=== PATIENT | female | born 1970 | race Caucasian/White ===

== ENCOUNTER 2016-11-17 12:15 | Emergency (ER) | payer BC ==
[~2016-11-17 12:15] MED LIST: ABILIFY20 MG PO; ALPRAZOLAM0.5 MG PO; ANTACI2 PO; ATORVASTATIN CA40 MG PO; CLONAZEPAM2 MG PO; DILAUDID4 MG PO; DIPHENHYDRAMINE25 M1 PO; MORPHINE SULFAT30 M2 PO; NORCO1 TAB PO; OXYCODONE HCL15 MG PO; OXYCONTIN CR15 MG PO; PRILOSEC20 MG PO; SERTRALINE HCL100 MG PO; STOOL SOFTENER100 M1 PO; TIZANIDINE HCL4 MG PO; ZOFRAN4 MG PO; ZOLPIDEM TARTRA10 MG PO
--- NOTE | 2016-11-17 17:34 | ED ORDER SUMMARY ---
..... Patient: CHRISTIN GUERRERO OrderSheet [facility] VisitID: [id number] [address] [place] [address] 46y, F Registration Date/Time: 11/17/2016 ORDER SHEET Weight: 102.0 kg (stated) Allergies: Codeine, Latex, Sulfa Antibiotics GENERAL ORDERS: BNP Urgent (15:21 11/17/2016 Justin RICHTER) (Ack 15:34 LNations ER Tech1) (15:54 MWinterer R.N.) D-Dimer Urgent (15:11/17/2016 Justin RICHTER) (Ack 15:34 LNations ER Tech1) (15:54 MWinterer R.N.) Cardiac Panel Stat (15:11/17/2016 Justin RICHTER) (Ack 15:34 LNations ER Tech1) (15:54 MWinterer R.N.) MEDICATION ORDERS: IV FLUIDS: IV Saline Lock (15:21 11/17/2016 Justin RICHTER) (Ack 15:31 MWinterer R.N.) (15:54 MWinterer R.N.) Dilaudid IV 1 mg (HIGH ALERT MEDICATION, NOW) (16:31 11/17/2016 Justin RICHTER) (Ack 16:32 MWinterer R.N.) (16:43 DBeyer R.N.) Toradol IV 30 mg (NOW) (16:31 11/17/2016 Justin RICHTER) (Ack 16:32 MWinterer R.N.) (16:43 DBeyer R.N.) Dilaudid IV 1 mg (HIGH ALERT MEDICATION, NOW) (17:36 11/17/2016 Justin RICHTER) (Ack 17:38 MWinterer R.N.) (17:45 MWinterer R.N.) ORDER SHEET NOTES: [Electronically signed by Fela Casillas R.N. (22:08 11/17/2016)] [Electronically signed by Alicia Hubbard MD (00:12 11/22/2016)] [Electronically locked/signed by Fela Casillas R.N. (22:08 11/17/2016)]
--- NOTE | 2016-11-17 17:34 | ED NURSING NOTES ---
Clinical Report - Nurses [place] [address] [place] [address] 11/17/2016 12:17 Patient: CHRISTIN GUERRERO TRIAGE Acuity: LEVEL 3. Chief Complaint: RIGHT LOWER EXTREMITY PAIN and SWELLING. Location of symptoms- right ankle. LEFT LOWER EXTREMITY PAIN and SWELLING. Location of symptoms- left ankle. Alert. No acute distress. BAMBI COMA SCORE: [place] Coma Scale: 15- eyes open spontaneously (4); best verbal response- oriented x 4 (5); best motor response- obeys commands (6). --12:46 Fela Casillas R.N. 12:38 11/17/16. BP: 144/63. HR: 72. RR: 16. O2 saturation: 100% on room air. Temp: 97.9 F (oral). Pain level now: 04/07. --12:46 Fela Casillas R.N. Weight: 102 kg stated. Height/Length: 66 inches Per Patient. BMI: 36.3. --12:42 Fela Casillas R.N. Medications DULoxetine HCl Oral. --12:42 Fela Casillas R.N. TiZANidine HCl Oral. --12:42 Fela Casillas R.N. Methylphenidate HCl Oral. --12:43 Fela Casillas R.N. Estridial. --12:43 Fela Casillas R.N. Omeprazole Oral. --12:44 Fela Casillas R.N. OxyCODONE HCl Oral. --12:44 Fela Casillas R.N. Morphine Sulfate ER Beads Oral 60 mg. --12:44 Fela Casillas R.N. Hydrocodone-Acetaminophen Oral. --12:44 Fela Casillas R.N. ALPRAZolam Oral. --12:45 Fela Casillas R.N. ClonazePAM Oral. --12:45 Fela Casillas R.N. Atorvastatin Calcium Oral. --12:45 Fela Casillas R.N. Zolpidem Tartrate Oral. --12:45 Fela Casillas R.N. Medication/allergy information source: the patient. --12:46 Fela Casillas R.N. Allergies Codeine. Latex. Sulfa Antibiotics. --12:42 Fela Casillas R.N. History Arrived by private vehicle. Historian: patient. Accompanied by friend. Primary physician (Horacio). This occurred (Nov 06, 2016). ( Pt reports bilateral edema since Nov 06. She states she developed a rash on her left ankle last night.). 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 (christian and Misbah). SOCIAL HX: Never smoker. No alcohol use or drug use. FALL RISK ASSESSMENT: Fall risk assessment completed. No fall risk identified. NUTRITIONAL RISK ASSESSMENT: The nutritional risk assessment revealed no deficiencies. FUNCTIONAL ASSESSMENT: Functional assessment: no impairments noted. LEARNING NEEDS ASSESSMENT: The learning needs assessment revealed no barriers. SKIN INTEGRITY ASSESSMENT: Skin integrity risk assessment completed. No skin integrity risk identified. --12:46 Fela Casillas R.N. Assessment GENERAL / NEURO / PSYCH: Alert. Oriented X 4. Appears in no acute distress. Patient appears calm and cooperative. RESPIRATORY: Respirations not labored. CVS: Capillary refill less than 2 seconds. GI / : Abdomen soft and nontender. SKIN: Mucous membranes are pink. Skin is warm and dry. --12:46 Fela Casillas R.N. Interventions ID band on patient. To treatment room. --12:46 Fela Casillas R.N. NURSING PROGRESS NOTES 12:46 11/17/16. Two patient identifiers checked. Call light placed in reach. Side rails up x 1. Bed placed in lowest position. Brakes of bed on. Patient ready for evaluation- chart flagged and ED physician notified. --12:46 Fela Casillas R.N. 15:49 11/17/2016 Site #1 started via IV in the right antecubital space with an 20g angiocath, with aseptic technique and good blood return; two attempts. Blood drawn: rainbow set. Labeled in the presence of the patient and sent to the lab. Saline lock flushed with 10 mL saline. --15:54 Fela Casillas R.N. 16:38 11/17/2016 Toradol IVP 30 mg given over 2 minute(s) via site #1. Allergies verified and confirmed 5 rights. IV patency established. IV site checked: no pain, redness, or swelling. IV flushed thoroughly pre- and post-medication administration. IVP given by RN. --16:43 Unruly Nielsen R.N. 16:43 11/17/2016 Dilaudid (HYDROmorphone HCl PF) IVP 1 mg given over 2 minute(s) via site #1. Allergies verified, confirmed 5 rights and sedative warning given to the patient. IV patency established. IV site checked: no pain, redness, or swelling. IV flushed thoroughly pre- and post-medication administration. IVP given by RN. --16:43 Unruly Nielsen R.N. 16:44 11/17/16. BP: 144/63. HR: 63. O2 saturation: 95%. --16:45 Unruly Nielsen R.N. 17:45 11/17/2016 Dilaudid (HYDROmorphone HCl PF) IVP 1 mg given over 2 minute(s) via site #1. Allergies verified, confirmed 5 rights and sedative warning given to the patient. IV patency established. IV site checked: no pain, redness, or swelling. IV flushed thoroughly pre- and post-medication administration. IVP given by RN. --17:45 Fela Casillas R.N. 17:50 11/17/2016 Site #1 removed upon discharge. Catheter intact. Manual pressure and bandage applied. --22:02 Fela Casillas R.N. DISPOSITION / DISCHARGE 17:45 11/17/16. BP: 148/73. HR: 61. RR: 12. O2 saturation: 98% on room air. Temp: 98.6 F (oral). Pain level now: 03/08. --17:46 Fela Casillas R.N. Departure time: 17:55 Nov 17 2016. Condition at departure: improved and stable. No learning barriers present. Discharge instructions provided and reviewed with the patient. Patient verbalized understanding. Written instructions provided in Cameroonian. The patient was discharged by the physician. She was discharged home and accompanied by security messenger. She left the Emergency Department ambulatory and via private vehicle. Photo Producer driving. --22:01 Fela Casillas R.N. Locked/Released at 11/17/2016 22:08 by Fela Casillas R.N.
--- NOTE | 2016-11-17 17:34 | ED ORDER SUMMARY ---
..... Patient: CHRISTIN GUERRERO OrderSheet [facility] VisitID: [id number] [address] [place] [address] 46y, F Registration Date/Time: 11/17/2016 ORDER SHEET Weight: 102.0 kg (stated) Allergies: Codeine, Latex, Sulfa Antibiotics GENERAL ORDERS: BNP Urgent (15:21 11/17/2016 Justin RICHTER) (Ack 15:34 LNations ER Tech1) (15:54 MWinterer R.N.) D-Dimer Urgent (15:11/17/2016 Justin RICHTER) (Ack 15:34 LNations ER Tech1) (15:54 MWinterer R.N.) Cardiac Panel Stat (15:11/17/2016 Justin RICHTER) (Ack 15:34 LNations ER Tech1) (15:54 MWinterer R.N.) MEDICATION ORDERS: IV FLUIDS: IV Saline Lock (15:21 11/17/2016 Justin RICHTER) (Ack 15:31 MWinterer R.N.) (15:54 MWinterer R.N.) Dilaudid IV 1 mg (HIGH ALERT MEDICATION, NOW) (16:31 11/17/2016 Justin RICHTER) (Ack 16:32 MWinterer R.N.) (16:43 DBeyer R.N.) Toradol IV 30 mg (NOW) (16:31 11/17/2016 Justin RICHTER) (Ack 16:32 MWinterer R.N.) (16:43 DBeyer R.N.) Dilaudid IV 1 mg (HIGH ALERT MEDICATION, NOW) (17:36 11/17/2016 Justin RICHTER) (Ack 17:38 MWinterer R.N.) (17:45 MWinterer R.N.) ORDER SHEET NOTES: [Electronically signed by Fela Casillas R.N. (22:08 11/17/2016)] [Electronically signed by Alicia Hubbard MD (00:12 11/22/2016)] [Electronically locked/signed by Fela Casillas R.N. (22:08 11/17/2016)]
--- NOTE | 2016-11-17 17:34 | ED NURSING NOTES ---
Clinical Report - Nurses [place] [address] [place] [address] 11/17/2016 12:17 Patient: CHRISTNI GUERRERO TRIAGE Acuity: LEVEL 3. Chief Complaint: RIGHT LOWER EXTREMITY PAIN and SWELLING. Location of symptoms- right ankle. LEFT LOWER EXTREMITY PAIN and SWELLING. Location of symptoms- left ankle. Alert. No acute distress. BAMBI COMA SCORE: [place] Coma Scale: 15- eyes open spontaneously (4); best verbal response- oriented x 4 (5); best motor response- obeys commands (6). --12:46 Fela Casilals R.N. 12:38 11/17/16. BP: 144/63. HR: 72. RR: 16. O2 saturation: 100% on room air. Temp: 97.9 F (oral). Pain level now: 04/07. --12:46 Fela Casillas R.N. Weight: 102 kg stated. Height/Length: 66 inches Per Patient. BMI: 36.3. --12:42 Fela Casillas R.N. Medications DULoxetine HCl Oral. --12:42 Fela Casillas R.N. TiZANidine HCl Oral. --12:42 Fela Casillas R.N. Methylphenidate HCl Oral. --12:43 Fela Casillas R.N. Estridial. --12:43 Fela Casillas R.N. Omeprazole Oral. --12:44 Fela Casillas R.N. OxyCODONE HCl Oral. --12:44 Fela Casillas R.N. Morphine Sulfate ER Beads Oral 60 mg. --12:44 Fela Casillas R.N. Hydrocodone-Acetaminophen Oral. --12:44 Fela Casillas R.N. ALPRAZolam Oral. --12:45 Fela Casillas R.N. ClonazePAM Oral. --12:45 Fela Casillas R.N. Atorvastatin Calcium Oral. --12:45 Fela Casillas R.N. Zolpidem Tartrate Oral. --12:45 Fela Casillas R.N. Medication/allergy information source: the patient. --12:46 Fela Casillas R.N. Allergies Codeine. Latex. Sulfa Antibiotics. --12:42 Fela Casillas R.N. History Arrived by private vehicle. Historian: patient. Accompanied by friend. Primary physician (Hoarcio). This occurred (Nov 06, 2016). ( Pt reports bilateral edema since Nov 06. She states she developed a rash on her left ankle last night.). 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 (christian and Misbah). SOCIAL HX: Never smoker. No alcohol use or drug use. FALL RISK ASSESSMENT: Fall risk assessment completed. No fall risk identified. NUTRITIONAL RISK ASSESSMENT: The nutritional risk assessment revealed no deficiencies. FUNCTIONAL ASSESSMENT: Functional assessment: no impairments noted. LEARNING NEEDS ASSESSMENT: The learning needs assessment revealed no barriers. SKIN INTEGRITY ASSESSMENT: Skin integrity risk assessment completed. No skin integrity risk identified. --12:46 Fela Casillas R.N. Assessment GENERAL / NEURO / PSYCH: Alert. Oriented X 4. Appears in no acute distress. Patient appears calm and cooperative. RESPIRATORY: Respirations not labored. CVS: Capillary refill less than 2 seconds. GI / : Abdomen soft and nontender. SKIN: Mucous membranes are pink. Skin is warm and dry. --12:46 Fela Casillas R.N. Interventions ID band on patient. To treatment room. --12:46 Fela Casillas R.N. NURSING PROGRESS NOTES 12:46 11/17/16. Two patient identifiers checked. Call light placed in reach. Side rails up x 1. Bed placed in lowest position. Brakes of bed on. Patient ready for evaluation- chart flagged and ED physician notified. --12:46 Fela Casillas R.N. 15:49 11/17/2016 Site #1 started via IV in the right antecubital space with an 20g angiocath, with aseptic technique and good blood return; two attempts. Blood drawn: rainbow set. Labeled in the presence of the patient and sent to the lab. Saline lock flushed with 10 mL saline. --15:54 Fela Casillas R.N. 16:38 11/17/2016 Toradol IVP 30 mg given over 2 minute(s) via site #1. Allergies verified and confirmed 5 rights. IV patency established. IV site checked: no pain, redness, or swelling. IV flushed thoroughly pre- and post-medication administration. IVP given by RN. --16:43 Unruly Nielesn R.N. 16:43 11/17/2016 Dilaudid (HYDROmorphone HCl PF) IVP 1 mg given over 2 minute(s) via site #1. Allergies verified, confirmed 5 rights and sedative warning given to the patient. IV patency established. IV site checked: no pain, redness, or swelling. IV flushed thoroughly pre- and post-medication administration. IVP given by RN. --16:43 Unruly Nielsen R.N. 16:44 11/17/16. BP: 144/63. HR: 63. O2 saturation: 95%. --16:45 Unruly Nielsen R.N. 17:45 11/17/2016 Dilaudid (HYDROmorphone HCl PF) IVP 1 mg given over 2 minute(s) via site #1. Allergies verified, confirmed 5 rights and sedative warning given to the patient. IV patency established. IV site checked: no pain, redness, or swelling. IV flushed thoroughly pre- and post-medication administration. IVP given by RN. --17:45 Fela Casillas R.N. 17:50 11/17/2016 Site #1 removed upon discharge. Catheter intact. Manual pressure and bandage applied. --22:02 Fela Casillas R.N. DISPOSITION / DISCHARGE 17:45 11/17/16. BP: 148/73. HR: 61. RR: 12. O2 saturation: 98% on room air. Temp: 98.6 F (oral). Pain level now: 03/08. --17:46 Fela Casillas R.N. Departure time: 17:55 Nov 17 2016. Condition at departure: improved and stable. No learning barriers present. Discharge instructions provided and reviewed with the patient. Patient verbalized understanding. Written instructions provided in [place]. The patient was discharged by the physician. She was discharged home and accompanied by legal intern. She left the Emergency Department ambulatory and via private vehicle. Employment Service Specialist driving. --22:01 Fela Casillas R.N. Locked/Released at 11/17/2016 22:08 by Fela Casillas R.N.
--- NOTE | 2016-11-17 17:34 | ED CLINICAL REPORT ---
Clinical Report - Physicians/Mid Levels [facility] [address] [place] [address] 11/17/2016 12:17 Patient: CHRISTIN GUERRERO Time Seen: 14:20. Arrived- By private vehicle. Historian- patient. HISTORY OF PRESENT ILLNESS Chief Complaint: LOWER EXTREMITY SWELLING. Severity is described as being moderate. The quality is noted to be "pain". No radiation. This started several days ago and is still present and now worse. Not relieved by anything- worsened by standing and walking. Symptoms located in the area of the right leg and left leg. The patient has had redness (rash just above ankles). She has had swelling. She has had moderate difficulty walking. It has been associated with pain in both legs. No bladder dysfunction, bowel dysfunction, sensory loss or motor loss. Patient denies an injury. Similar symptoms previously: None. Recent medical care: Not recently seen/assessed. REVIEW OF SYSTEMS No cough, chest pain, difficulty breathing, fever or enlarged lymph nodes. No neck pain, back pain, headache, blurred vision or sore throat. No abdominal pain, vomiting, diarrhea, black stools or difficulty with urination. No bloody stools. The patient has had skin rash. All systems otherwise negative, except as recorded above. PAST HISTORY Problems: Pyriformis syndrome. Bronchospasm. Depression. Anxiety Reaction. Additional Surgeries: Carpal Tunnel Surgery. Feet. Hysterectomy. Medications: Zolpidem Tartrate Oral. Atorvastatin Calcium Oral. ClonazePAM Oral. ALPRAZolam Oral. Hydrocodone-Acetaminophen Oral. Morphine Sulfate ER Beads Oral 60 mg. OxyCODONE HCl Oral. Omeprazole Oral. Estridial. Methylphenidate HCl Oral. TiZANidine HCl Oral. DULoxetine HCl Oral. Allergies: Codeine. Latex. Sulfa Antibiotics. SOCIAL HISTORY Never smoker. No alcohol use or drug use. ADDITIONAL NOTES The nursing notes have been reviewed. PHYSICAL EXAM Vital Signs: 11/17/2016 12:38 BP: 144/63. HR: 72. RR: 16. O2 saturation: 100%. Temp: 97.9 F. Pain level now: 04/07. Have been reviewed. Appearance: Alert. Oriented X3. No acute distress. Eyes: Pupils equal, round and reactive to light. Eyes normal inspection. ENT: Nose normal. Neck: Normal inspection. CVS: Normal heart rate and rhythm. Heart sounds normal. Respiratory: No respiratory distress. Breath sounds normal. Abdomen: Soft and nontender. Back: Normal inspection. ROM normal. Skin: Skin intact. Skin warm and dry. (Pt has a small area about 4 cm superior to each ankle of a reticular, non-raised, non-blanching rash. No other erythema.). Extremities: Bilateral moderate non-pitting edema of the lower extremities involving both feet, both ankles and both lower legs. Extremities otherwise negative. Neuro: Oriented X 3. No motor deficit. No sensory deficit. LABS, X-RAYS, AND EKG Laboratory Tests: CBC w Diff: (KHADAR: 11/17/2016 15:45) ( MsgRcvd 11/17/2016 16:02) Final results Test Result Flag Units (Reference) WHITE BLOOD COUNT 7.6 K/uL (4.5-11.5) RED BLOOD COUNT 3.77 L M/uL (4.00-5.20) HEMOGLOBIN 11.8 L gm/dL (12.0-16.0) HEMATOCRIT 35.3 L % (36.0-46.0) MEAN CELL VOLUME 94 fL (80-100) MEAN CORPUSCULAR HGB 31 pg (26-34) MEAN CORPUSCULAR HGB CONC 34 g/dL (31-37) RED CELL DISTRIBUTION WIDTH 13.6 % (11.6-14.8) PLATELET COUNT 256 K/uL (150-400) NEUTROPHIL % 53.3 % (50-75) LYMPH % 38.5 % (25-40) MONO % 5.8 % (3-14) EOSINOPHIL % 2.0 % (0-4) BASOPHIL % 0.4 % (0-2) [id number]: (KHADAR: 11/17/2016 15:45) ( MsgRcvd 11/17/2016 16:23) Final results Test Result Flag Units (Reference) D-DIMER QUANTITATIVE < 0.27 L ug/mLFEU (0.27-0.52) The primary value of this quantitative assay relates toits negative predictive value (i.e. exclusion) of pulmonaryembolism/deep vein thrombosis/DIC.Elevated levels of d-dimer may also occur with:, age, cancer, inflammation, liver disease,post-op, infection, hematoma, coronary disease, peripheralarteriopathy, bleeding disorders and thrombolytic treatment.Results should be correlated with other clinical andradiological data.Testing Methodology: Latex Immunoassay BNP: (KHADAR: 11/17/2016 15:45) ( [facility] [place] Final results Test Result Flag Units (Reference) B-TYPE NATRIURETIC PEPTIDE 99.9 pg/ml (5-100) CHEM 13 PANEL: (KHADAR: 11/17/2016 15:45) ( GagRcvd 11/17/2016 16:35) Final results Test Result Flag Units (Reference) GLUCOSE 114 H mg/dL (70-110) BUN 16 mg/dL (7-18) CREATININE 0.7 mg/dL (0.6-1.3) Estimated GFR >60 mL/min Estimated GFR- >60 mL/min Note: Persistent reduction over 3 months in eGFR<60 mL/min/1.73 m2 defines CKD. Patients with eGFR values>=60 mL/min/1.73 m2 may also have CKD if evidence ofpersistent proteinuria. Additional information may be foundat www.kidney.org. SODIUM 140 mmol/L (136-145) POTASSIUM 3.9 mmol/L (3.5-5.1) CHLORIDE 103 mmol/L (98-107) CARBON DIOXIDE 29 mmol/L (21-32) CALCIUM 8.9 mg/dL (8.5-10.1) TOTAL PROTEIN 7.3 g/dL (6.4-8.2) ALBUMIN 3.4 g/dL (3.3-5.0) BILIRUBIN, TOTAL 0.3 mg/dL (0.0-1.0) ALKALINE PHOSPHATASE 99 U/L (46-116) AST (SGOT) 26 U/L (15-37) ALT (SGPT) 30 U/L (12-78) MAGNESIUM 1.9 mg/dL (1.8-2.4) CPK 83 U/L (24-260) TROPONIN I <0.05 ng/mL (0.00-1.5) TROPONIN REFERENCE RANGE:<0.1 NEGATIVE0.1-1.5 INDETERMINANT>1.5 POSITIVE . Pulse Oximetry: 11/17/2016 12:38 O2 saturation: 100%. (FIO2 - room air). Interpretation: normal. PROGRESS AND PROCEDURES Course of Care: Pt was treated symptomatically with IV Toradol and Dilaudid. She was worked up for her sx, and work-up was unremarkable. No emergent condition was identified. Patient counseled in person regarding the patient's stable condition, test results, diagnosis and need for follow-up. Concerns were addressed. Old medical records reviewed. Disposition: Discharged. Condition: stable. CLINICAL IMPRESSION Bilateral pedal edema secondary to unknown cause. INSTRUCTIONS Elevate affected areas above chest level. (Your labs look great. There is no sign of failure of the heart, liver or kidneys, or of blood clots.). Warnings: GENERAL WARNINGS: Return or contact your physician immediately if your condition worsens or changes unexpectedly, if not improving as expected, or if other problems arise. Your Current Medications: CONTINUE TAKING THE FOLLOWING MEDICATIONS: ALPRAZolam Oral. Atorvastatin Calcium Oral. ClonazePAM Oral. DULoxetine HCl Oral. Estridial*. Hydrocodone-Acetaminophen Oral. Methylphenidate HCl Oral. Morphine Sulfate ER Beads Oral : 60 mg. Omeprazole Oral. OxyCODONE HCl Oral. TiZANidine HCl Oral. Zolpidem Tartrate Oral. Follow-up: Follow up with your doctor. Call for the next available appointment. Reason for referral: Follow up ER visit Understanding of the discharge instructions verbalized by patient and family. (Electronically signed by Alicia Hubbard MD 11/22/2016 0:12)
--- NOTE | 2016-11-22 00:13 | ED MAR SUMMARY ---
..... Medication Administration Record [facility] [address] [place] [address] Patient: CHRISTIN GUERRERO Visit ID: [id number] 46y, F Weight: 102.0 kg Height/Length: 66 in BMI: 36.3 ALLERGIES: Codeine, Latex, Sulfa Antibiotics Given 16:38 11/17/2016 Unruly Nielsen RRenéN. Medication Administered: TORADOL [IVP], Dose: 30 mg IVP over 2 minute(s), Site: #1 right AC. Medication Ordered: Toradol IV 30 mg (NOW). Given 16:43 11/17/2016 Unruly Nielsen, RRenéN. Medication Administered: DILAUDID [IVP] (HYDROMORPHONE HCL PF), Dose: 1 mg IVP over 2 minute(s), Site: #1 right AC. Medication Ordered: Dilaudid IV 1 mg (HIGH ALERT MEDICATION, NOW). Given 17:45 11/17/2016 Fela Casillas R.N. Medication Administered: DILAUDID [IVP] (HYDROMORPHONE HCL PF), Dose: 1 mg IVP over 2 minute(s), Site: #1 right AC. Medication Ordered: Dilaudid IV 1 mg (HIGH ALERT MEDICATION, NOW).
--- NOTE | 2016-11-22 00:13 | ED DISCHARGE INSTRUCTIONS ---
Patient: CHRISTIN GUERRERO General Instructions [facility] VisitID: [id number] [address] [place] [address] 46y, F Registration Date/Time: 11/17/2016 Bilateral pedal edema secondary to unknown cause. INSTRUCTIONS Elevate affected areas above chest level. (Your labs look great. There is no sign of failure of the heart, liver or kidneys, or of blood clots.). Warnings: GENERAL WARNINGS: Return or contact your physician immediately if your condition worsens or changes unexpectedly, if not improving as expected, or if other problems arise. Your Current Medications: CONTINUE TAKING THE FOLLOWING MEDICATIONS: ALPRAZolam Oral. Atorvastatin Calcium Oral. ClonazePAM Oral. DULoxetine HCl Oral. Estridial*. Hydrocodone-Acetaminophen Oral. Methylphenidate HCl Oral. Morphine Sulfate ER Beads Oral : 60 mg. Omeprazole Oral. OxyCODONE HCl Oral. TiZANidine HCl Oral. Zolpidem Tartrate Oral. Follow-up: Follow up with your doctor. Call for the next available appointment. Reason for referral: Follow up ER visit Understanding of the discharge instructions verbalized by patient and family. ADDITIONAL INFORMATION Leg Swelling [Bilateral] Swelling of the feet, ankles and legs is called "Edema." It is due to excess fluid collecting in the tissues. Because of gravity, excess fluid in the body settles in the lowest part. This is why the legs and feet are most affected. Some of the causes for edema include: Disease of the heart (congestive heart failure or "CHF") Prolonged standing or sitting (with the legs in the down position) Infection of the feet or legs Venous Insufficiency (congestion of blood in the veins of the legs) Varicose veins (dilated veins of the lower leg) Garters, or clothing that constricts your legs. (These will cause venous congestion by restricting blood flow.) Some medicines (hormones such as control pills; some blood pressure medicines, such as calcium channel blockers; steroids; some antidepressants such as MAO inhibitors and tricyclics.) Menstrual periods with fluid retention Renal insufficiency (a form of kidney disease) Liver failure (Some swelling is normal, but a sudden increase in leg swelling or weight gain can be a sign of a dangerous complication of ). Medical treatment will depend on the cause of your swelling. Diuretics (water pills) may be prescribed to remove excess fluid. Home Care: Do not wear garments that constrict your legs (such as garters). Elevate your legs while lying or sitting. If infection, injury or recent surgery is the cause for your swelling, stay off your legs as much as possible until symptoms improve. If your doctor says that your leg swelling is caused by venous insufficiency or varicose veins, do not sit or head wood grinder one place for long periods of time. Take breaks and walk about every few hours. Brisk walking is a good exercise and helps circulate the congested blood from your leg. Talk to your doctor about the use of support stockings to prevent daytime leg swelling. If your doctor says that heart disease is the cause of your leg swelling, follow a low-salt diet to prevent excess fluid retention. Follow Up with your doctor or as advised by our staff. Get Prompt Medical Attention if any of the following occur: New or worsening shortness of breath or chest pain Increasing swelling in both legs or ankles Swelling of the abdomen Redness, warmth or swelling in one leg Fever of 100.4F (38C) or higher, or as directed by your healthcare provider Yellow color to the skin or eyes Rapid, unexplained weight gain You have been given the following additional information: Peripheral Edema, Bilateral (Electronically signed by Alicia Hubbard MD 11/22/2016 0:12)
--- NOTE | 2016-11-22 00:13 | ED MAR SUMMARY ---
..... Medication Administration Record [facility] [address] [place] [address] Patient: CHRISTIN GUERRERO Visit ID: [id number] 46y, F Weight: 102.0 kg Height/Length: 66 in BMI: 36.3 ALLERGIES: Codeine, Latex, Sulfa Antibiotics Given 16:38 11/17/2016 Unruly Nielsen RRenéN. Medication Administered: TORADOL [IVP], Dose: 30 mg IVP over 2 minute(s), Site: #1 right AC. Medication Ordered: Toradol IV 30 mg (NOW). Given 16:43 11/17/2016 Unruly Nielsen, RRenéN. Medication Administered: DILAUDID [IVP] (HYDROMORPHONE HCL PF), Dose: 1 mg IVP over 2 minute(s), Site: #1 right AC. Medication Ordered: Dilaudid IV 1 mg (HIGH ALERT MEDICATION, NOW). Given 17:45 11/17/2016 Fela Casillas R.N. Medication Administered: DILAUDID [IVP] (HYDROMORPHONE HCL PF), Dose: 1 mg IVP over 2 minute(s), Site: #1 right AC. Medication Ordered: Dilaudid IV 1 mg (HIGH ALERT MEDICATION, NOW).
--- NOTE | 2016-11-22 00:13 | ED MED RECONCILIATION SUMMARY ---
Patient: CHRISTIN GUERRERO Medication Reconciliation Report [facility] VisitID: [id number] [address] [place] [address] 46y, F Registration Date/Time: 11/17/2016 Weight: 102.0 kg Height/Length: 66 in. BMI: 36.3 ALLERGIES: Codeine, Latex, Sulfa Antibiotics The patient's Home Medications are listed below: CONTINUE TAKING THE FOLLOWING MEDICATIONS: ALPRAZolam Oral Atorvastatin Calcium Oral ClonazePAM Oral DULoxetine HCl Oral Estridial Hydrocodone-Acetaminophen Oral Methylphenidate HCl Oral Morphine Sulfate ER Beads Oral 60 mg Omeprazole Oral OxyCODONE HCl Oral TiZANidine HCl Oral Zolpidem Tartrate Oral The source(s) of the original Home Medication information: patient The following Medications were given to the patient in the Emergency Department: Toradol [IVP] IVP 30 mg, administered: 11/17/2016 4:38:00 PM Dilaudid [IVP] IVP 1 mg, administered: 11/17/2016 4:43:00 PM Dilaudid [IVP] IVP 1 mg, administered: 11/17/2016 5:45:00 PM The following Medications were prescribed to the patient: None.
--- NOTE | 2016-11-22 00:13 | ED MED RECONCILIATION SUMMARY ---
Patient: CHRISTIN GUERRERO Medication Reconciliation Report [facility] VisitID: [id number] [address] [place] [address] 46y, F Registration Date/Time: 11/17/2016 Weight: 102.0 kg Height/Length: 66 in. BMI: 36.3 ALLERGIES: Codeine, Latex, Sulfa Antibiotics The patient's Home Medications are listed below: CONTINUE TAKING THE FOLLOWING MEDICATIONS: ALPRAZolam Oral Atorvastatin Calcium Oral ClonazePAM Oral DULoxetine HCl Oral Estridial Hydrocodone-Acetaminophen Oral Methylphenidate HCl Oral Morphine Sulfate ER Beads Oral 60 mg Omeprazole Oral OxyCODONE HCl Oral TiZANidine HCl Oral Zolpidem Tartrate Oral The source(s) of the original Home Medication information: patient The following Medications were given to the patient in the Emergency Department: Toradol [IVP] IVP 30 mg, administered: 11/17/2016 4:38:00 PM Dilaudid [IVP] IVP 1 mg, administered: 11/17/2016 4:43:00 PM Dilaudid [IVP] IVP 1 mg, administered: 11/17/2016 5:45:00 PM The following Medications were prescribed to the patient: None.
== END 2016-11-17 17:55 | disposition home or self-care (01) ==
LOC: ED SRH 12:15
DX: R60.0 Localized edema (principal); Z79.891 Long term (current) use of opiate analgesic; Z79.899 Other long term (current) drug therapy; Z88.5 Allergy status to narcotic agent; Z88.2 Allergy status to sulfonamides; Z91.040 Latex allergy status
CPT/HCPCS: 90100; 90616; 91320; 91556; 92610; 92720; 95059

== ENCOUNTER 2016-12-06 10:25 | Emergency (ER) | payer BC ==
--- NOTE | 2016-12-06 13:26 | DIAGNOSTIC IMAGING REPORT ---
PROCEDURE: XR CHEST 2 VIEW INDICATION: FEVER TECHNIQUE: PA and lateral views. COMPARISON: Chest 01/26/2015 and 04/14/2015 FINDINGS: Lungs are clear. Heart and mediastinum are normal. Thorax is normal. IMPRESSION: 1. Negative chest.
--- NOTE | 2016-12-06 13:32 | DIAGNOSTIC IMAGING REPORT ---
PROCEDURE: XR SINUSES LESS THAN 3 VIEWS INDICATION: MAXILLARY PRESSURE TECHNIQUE: Water's view COMPARISON: None. FINDINGS: Air-fluid level in the right maxillary sinus. Mild left maxillary sinus mucosal thickening. Frontal sinuses are clear. Bones are unremarkable. IMPRESSION: 1. Right maxillary acute sinusitis
--- NOTE | 2016-12-06 13:54 | ED CLINICAL REPORT ---
Clinical Report - Physicians/Mid Levels [facility] [address] [place] [address] 12/06/2016 10:25 Patient: CHRISTIN GUERRERO Time Seen: 11:14 Dec 06 2016. Arrived- By private vehicle. Historian- patient. CPT: ER phys charges level 4 (#[id number]). HISTORY OF PRESENT ILLNESS Chief Complaint: COUGH, SORE THROAT, SINUS PAIN and CHILLS. 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 The illness is described as moderate. The patient has had sputum production, a cough, chest discomfort, a sore throat and nasal congestion. She has had sinus pressure, sinus drainage and chills. Additional history - No known contact with a sick individual. Similar symptoms previously: Recent medical care: Not recently seen/assessed. REVIEW OF SYSTEMS The patient has had a headache and nausea. No eye discomfort, pedal edema, calf pain, difficulty with urination or skin rash. No enlarged lymph nodes or joint pain. She has had vomiting (today). The vomiting has occurred only once. All systems otherwise negative, except as recorded above. PAST HISTORY Pyriformis syndrome. Pedal Edema. Bronchospasm. Feet problem. Depression. Anxiety Reaction. Contusion. Back Pain. Carpal Tunnel Surgery. Hysterectomy. Medications: OxyCODONE HCl Oral. TiZANidine HCl Oral. Zolpidem Tartrate Oral. ALPRAZolam Oral. Atorvastatin Calcium Oral. ClonazePAM Oral. DULoxetine HCl Oral. Estridial. Hydrocodone-Acetaminophen Oral. Methylphenidate HCl Oral. Morphine Sulfate ER Beads Oral 60 mg. Omeprazole Oral. Allergies: Codeine. Latex. Sulfa Antibiotics. SOCIAL HISTORY Former smoker. Occasional alcohol use. ADDITIONAL NOTES The nursing notes have been reviewed. PHYSICAL EXAM Vital Signs: 12/06/2016 10:30 BP: 206/95. HR: 85. RR: 40. O2 saturation: 95%. Temp: 100.5 F. Pain level now: 7/10. Appearance: Alert. Patient in mild distress. Head: Tenderness present to percussion/palpation of the sinuses: moderate right and left maxillary tenderness. Eyes: Pupils equal, round and reactive to light. Eyes normal inspection. ENT: Ears normal. Nose normal. Pharyngeal erythema. Uvula midline. Neck: Normal inspection. Neck supple. No meningeal signs. CVS: Normal heart rate and rhythm. Heart sounds normal. Pulses normal. No cardiac murmur. Respiratory: No respiratory distress. Wheezing present. Rhonchi present. Abdomen: Soft and nontender. Back: Normal inspection. Skin: Skin warm. Normal skin color. No rash. Extremities: Extremities exhibit normal ROM. No lower extremity edema. Neuro: Oriented X 3. No motor deficit. No sensory deficit. Reflexes normal. LABS, X-RAYS, AND EKG EKG: No acute process. No acute ischemia. Normal sinus rhythm. Normal P waves. Normal QRS complex. Normal axis. Normal ST and T waves. Prior EKG unavailable. The study has been interpreted contemporaneously. The study has been independently viewed by me. The EKG appears to be a good tracing. Chest X-ray: Normal Chest X-Ray. Laboratory Tests: CBC w Diff: (KHADAR: 12/06/2016 10:55) ( MsgRcvd 12/06/2016 11:27) Final results Test Result Flag Units (Reference) WHITE BLOOD COUNT 11.2 K/uL (4.5-11.5) RED BLOOD COUNT 4.21 M/uL (4.00-5.20) HEMOGLOBIN 13.1 gm/dL (12.0-16.0) HEMATOCRIT 39.1 % (36.0-46.0) MEAN CELL VOLUME 93 fL (80-100) MEAN CORPUSCULAR HGB 31 pg (26-34) MEAN CORPUSCULAR HGB CONC 33 g/dL (31-37) RED CELL DISTRIBUTION WIDTH 12.9 % (11.6-14.8) PLATELET COUNT 238 K/uL (150-400) NEUTROPHIL % 68.7 % (50-75) LYMPH % 23.8 L % (25-40) MONO % 6.3 % (3-14) EOSINOPHIL % 0.9 % (0-4) BASOPHIL % 0.3 % (0-2) . Note - Tests: (Sims sinus : Right fluid level in right maxillary sinus.). PROGRESS AND PROCEDURES Course of Care: IV NS Rocephin 2g IV Albuterol HHN times 2 Patient is stable. Patient/family counseled. Disposition: Discharged. Condition: stable. CLINICAL IMPRESSION Acute maxillary sinusitis Acute bacterial bronchitis. Acute bronchospasm Acute pharyngitis (bacterial). Intractable vomiting with nausea and volume depletion (Post-tussive). INSTRUCTIONS No strenuous activity. Rest. Drink plenty of fluids. (Decongestant of choice.). Warnings: Further evaluation is necessary. GENERAL WARNINGS: Return or contact your physician immediately if your condition worsens or changes unexpectedly, if not improving as expected, or if other problems arise. Your Current Medications: CONTINUE TAKING THE FOLLOWING MEDICATIONS: ALPRAZolam Oral. Atorvastatin Calcium Oral. ClonazePAM Oral. DULoxetine HCl Oral. Estridial*. Hydrocodone-Acetaminophen Oral. Methylphenidate HCl Oral. Morphine Sulfate ER Beads Oral : 60 mg. Omeprazole Oral. OxyCODONE HCl Oral. TiZANidine HCl Oral. Zolpidem Tartrate Oral. Prescription Medications: Zofran (orally disintegrating tablets) 4 mg: take 1 orally every 4 hours as needed for nausea and vomiting. Dispense ten (10). No refill. Substitution is permissible. Albuterol HFA oral inhaler: inhale 2 puffs via spacer every 4 hours as needed for difficulty breathing. Dispense one (1) unit. No refill. (or cough) Augmentin 875 mg: take 1 tablet orally every 12 hours for 14 days. No refill. Hydrocodone / APAP Liquid 7.5mg/325mg/15 mL: take fifteen (15) mL orally every 6 hours as needed. Dispense two hundred (200) mL. No refill. (for cough) Follow-up: Follow up with your doctor in one week. Call for an appointment. Understanding of the discharge instructions verbalized by patient. (Electronically signed by Gurjit Carballo MD 12/08/2016 15:52)
--- NOTE | 2016-12-06 13:54 | ED ORDER SUMMARY ---
..... Patient: CHRISTIN GUERRERO OrderSheet [facility] VisitID: [id number] [address] [place] [address] 46y, F Registration Date/Time: 12/06/2016 ORDER SHEET Weight: 90.7 kg (stated) Allergies: Codeine, Latex, Sulfa Antibiotics GENERAL ORDERS: EKG - ER Stat (10:40 12/06/2016 JSimbeck R.N. 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 per protocol) (11:11 JSimbeck R.N.) Pulse oximeter (11:12/06/2016 JSimbeck R.N. per protocol) (11:11 JSimbeck R.N.) CBC w Diff Urgent (11:22 12/06/2016 Myla RICHTER) (Ack 11:24 Tia) (11:27 JSimbeck R.N.) Chest 2V Urgent (12:47 12/06/2016 Myla RICHTER) (Ack 12:51 RKaruga) (13:15 JSimbeck R.N.) Sinuses less than 3V Urgent (12:48 12/06/2016 Myla RICHTER) (Ack 12:51 RKaruga) (13:15 JSimbeck R.N.) - (re-check temperature.) (12:48 12/06/2016 Myla RICHTER) (12:56 LTapper) MEDICATION ORDERS: Albuterol Neb w Atrovent 1 unit dose (NOW) (11:10 12/06/2016 JSimbeck R.N. per protocol) (11:11 JSimbeck R.N.) Hydrocodone-APAP Liquid PO 15 mL (NOW) (12:48 12/06/2016 Myla RICHTER) (13:14 JSimbeck R.N.) IV FLUIDS: IV Saline Lock (11:06 12/06/2016 JSimbeck R.N. per protocol) (11:07 JSimbeck R.N.) IV NS : initial bolus 1000 mL (1000 mL/hr), then none - for X1 (NOW); Routine (11:20 12/06/2016 Myla RICHTER) (11:28 Trevor Leigh) Rocephin IV 2 gm/50mL (NOW) (11:22 12/06/2016 Myla RICHTER) (11:33 Trevor Leigh) ORDER SHEET NOTES: [Electronically signed by Joni Ramirez R.N. (14:13 12/06/2016)] [Electronically signed by Gurjit Carballo MD (15:52 12/08/2016)] [Electronically locked/signed by Joni Ramirez R.N. (14:13 12/06/2016)]
--- NOTE | 2016-12-06 13:54 | ED CLINICAL REPORT ---
Clinical Report - Physicians/Mid Levels [facility] [address] [place] [address] 12/06/2016 10:25 Patient: CHRISTIN GUERRERO Time Seen: 11:14 Dec 06 2016. Arrived- By private vehicle. Historian- patient. CPT: ER phys charges level 4 (#[id number]). HISTORY OF PRESENT ILLNESS Chief Complaint: COUGH, SORE THROAT, SINUS PAIN and CHILLS. 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 The illness is described as moderate. The patient has had sputum production, a cough, chest discomfort, a sore throat and nasal congestion. She has had sinus pressure, sinus drainage and chills. Additional history - No known contact with a sick individual. Similar symptoms previously: Recent medical care: Not recently seen/assessed. REVIEW OF SYSTEMS The patient has had a headache and nausea. No eye discomfort, pedal edema, calf pain, difficulty with urination or skin rash. No enlarged lymph nodes or joint pain. She has had vomiting (today). The vomiting has occurred only once. All systems otherwise negative, except as recorded above. PAST HISTORY Pyriformis syndrome. Pedal Edema. Bronchospasm. Feet problem. Depression. Anxiety Reaction. Contusion. Back Pain. Carpal Tunnel Surgery. Hysterectomy. Medications: OxyCODONE HCl Oral. TiZANidine HCl Oral. Zolpidem Tartrate Oral. ALPRAZolam Oral. Atorvastatin Calcium Oral. ClonazePAM Oral. DULoxetine HCl Oral. Estridial. Hydrocodone-Acetaminophen Oral. Methylphenidate HCl Oral. Morphine Sulfate ER Beads Oral 60 mg. Omeprazole Oral. Allergies: Codeine. Latex. Sulfa Antibiotics. SOCIAL HISTORY Former smoker. Occasional alcohol use. ADDITIONAL NOTES The nursing notes have been reviewed. PHYSICAL EXAM Vital Signs: 12/06/2016 10:30 BP: 206/95. HR: 85. RR: 40. O2 saturation: 95%. Temp: 100.5 F. Pain level now: 7/10. Appearance: Alert. Patient in mild distress. Head: Tenderness present to percussion/palpation of the sinuses: moderate right and left maxillary tenderness. Eyes: Pupils equal, round and reactive to light. Eyes normal inspection. ENT: Ears normal. Nose normal. Pharyngeal erythema. Uvula midline. Neck: Normal inspection. Neck supple. No meningeal signs. CVS: Normal heart rate and rhythm. Heart sounds normal. Pulses normal. No cardiac murmur. Respiratory: No respiratory distress. Wheezing present. Rhonchi present. Abdomen: Soft and nontender. Back: Normal inspection. Skin: Skin warm. Normal skin color. No rash. Extremities: Extremities exhibit normal ROM. No lower extremity edema. Neuro: Oriented X 3. No motor deficit. No sensory deficit. Reflexes normal. LABS, X-RAYS, AND EKG EKG: No acute process. No acute ischemia. Normal sinus rhythm. Normal P waves. Normal QRS complex. Normal axis. Normal ST and T waves. Prior EKG unavailable. The study has been interpreted contemporaneously. The study has been independently viewed by me. The EKG appears to be a good tracing. Chest X-ray: Normal Chest X-Ray. Laboratory Tests: CBC w Diff: (KHADAR: 12/06/2016 10:55) ( MsgRcvd 12/06/2016 11:27) Final results Test Result Flag Units (Reference) WHITE BLOOD COUNT 11.2 K/uL (4.5-11.5) RED BLOOD COUNT 4.21 M/uL (4.00-5.20) HEMOGLOBIN 13.1 gm/dL (12.0-16.0) HEMATOCRIT 39.1 % (36.0-46.0) MEAN CELL VOLUME 93 fL (80-100) MEAN CORPUSCULAR HGB 31 pg (26-34) MEAN CORPUSCULAR HGB CONC 33 g/dL (31-37) RED CELL DISTRIBUTION WIDTH 12.9 % (11.6-14.8) PLATELET COUNT 238 K/uL (150-400) NEUTROPHIL % 68.7 % (50-75) LYMPH % 23.8 L % (25-40) MONO % 6.3 % (3-14) EOSINOPHIL % 0.9 % (0-4) BASOPHIL % 0.3 % (0-2) . Note - Tests: (Sims sinus : Right fluid level in right maxillary sinus.). PROGRESS AND PROCEDURES Course of Care: IV NS Rocephin 2g IV Albuterol HHN times 2 Patient is stable. Patient/family counseled. Disposition: Discharged. Condition: stable. CLINICAL IMPRESSION Acute maxillary sinusitis Acute bacterial bronchitis. Acute bronchospasm Acute pharyngitis (bacterial). Intractable vomiting with nausea and volume depletion (Post-tussive). INSTRUCTIONS No strenuous activity. Rest. Drink plenty of fluids. (Decongestant of choice.). Warnings: Further evaluation is necessary. GENERAL WARNINGS: Return or contact your physician immediately if your condition worsens or changes unexpectedly, if not improving as expected, or if other problems arise. Your Current Medications: CONTINUE TAKING THE FOLLOWING MEDICATIONS: ALPRAZolam Oral. Atorvastatin Calcium Oral. ClonazePAM Oral. DULoxetine HCl Oral. Estridial*. Hydrocodone-Acetaminophen Oral. Methylphenidate HCl Oral. Morphine Sulfate ER Beads Oral : 60 mg. Omeprazole Oral. OxyCODONE HCl Oral. TiZANidine HCl Oral. Zolpidem Tartrate Oral. Prescription Medications: Zofran (orally disintegrating tablets) 4 mg: take 1 orally every 4 hours as needed for nausea and vomiting. Dispense ten (10). No refill. Substitution is permissible. Albuterol HFA oral inhaler: inhale 2 puffs via spacer every 4 hours as needed for difficulty breathing. Dispense one (1) unit. No refill. (or cough) Augmentin 875 mg: take 1 tablet orally every 12 hours for 14 days. No refill. Hydrocodone / APAP Liquid 7.5mg/325mg/15 mL: take fifteen (15) mL orally every 6 hours as needed. Dispense two hundred (200) mL. No refill. (for cough) Follow-up: Follow up with your doctor in one week. Call for an appointment. Understanding of the discharge instructions verbalized by patient. (Electronically signed by Gurjit Carballo MD 12/08/2016 15:52)
--- NOTE | 2016-12-06 13:54 | ED NURSING NOTES ---
Clinical Report - Nurses [facility] [address] [place] [place] [address] 12/06/2016 10:25 Patient: CHRISTIN GUERRERO TRIAGE Triage time 10:30. Acuity: LEVEL 3. Chief Complaint: (Onset last Friday - SOB, cough, sinus congestion, sore throat, chest and abd pain, vomiting, chills.). 10:36 12/06/16. SEPSIS SCREEN: Sepsis Screen. Negative (no infection suspected/documented). BAMBI COMA SCORE: [place] Coma Scale: 15- eyes open spontaneously (4); best verbal response- oriented x 4 (5); best motor response- obeys commands (6). --10:36 Je Mcintosh R.N. 10:30 12/06/16. BP: 206/95. HR: 85. RR: 40. O2 saturation: 95%. Temp: 100.5 F (oral). Pain level now: 04/07. --10:36 Je Mcintosh R.N. Weight: 90.7 kg stated. Height/Length: 66 inches Per Patient. BMI: 32.3. --10:34 Je Mcintosh R.N. Medications ALPRAZolam Oral. Atorvastatin Calcium Oral. ClonazePAM Oral. DULoxetine HCl Oral. Estridial. Hydrocodone-Acetaminophen Oral. Methylphenidate HCl Oral. Morphine Sulfate ER Beads Oral 60 mg. Omeprazole Oral. --10:31 Je Mcintosh R.N. OxyCODONE HCl Oral. TiZANidine HCl Oral. Zolpidem Tartrate Oral. --10:31 Je Mcintosh R.N. Allergies Codeine. Latex. Sulfa Antibiotics. --10:31 Je Mcintosh R.N. History Arrived by private vehicle. Historian: patient. No known contact with a sick individual. No recent travel. SOCIAL HX: Former smoker, end date 2012. Occasional alcohol use. No drug use. ABUSE ASSESSMENT: No report of abuse. --10:36 Je Mcintosh R.N. PROBLEMS: Pyriformis syndrome. Pedal Edema. Bronchospasm. Feet problem. Depression. Anxiety Reaction. Contusion. Back Pain. --10:31 Je Mcintosh R.N. ADDITIONAL SURGERIES: Carpal Tunnel Surgery. Hysterectomy. --10:31 Je Mcintosh R.N. Interventions ID band on patient. To treatment room. --10:36 Je Mcintosh R.N. PHYSICAL ASSESSMENT 10:36 12/06/16. Ambulatory to room. GENERAL / NEURO / PSYCH: Alert. Oriented X 4. Appears in distress. HEENT: Pupils equal, round and reactive to light. Mucous membranes are pink. RESPIRATORY: Moderate respiratory distress. Cough productive of yellow sputum. Chest wall tenderness. Wheezing present. CVS: Capillary refill less than 2 seconds. Pulses within normal limits. GI / : Abdomen soft and normal bowel sounds. SKIN: Skin is warm and dry. Normal skin turgor. --10:39 Je Mcintosh R.N. NURSING PROGRESS NOTES 10:39 12/06/16. Pulse oximeter applied; monitor alarms on. Patient gowned. Head of bed elevated. Reassurance given. Two patient identifiers checked. Call light placed in reach. Bed placed in lowest position. Brakes of bed on. Patient ready for evaluation- chart flagged. --10:39 Je Mcintosh R.N. EKG time: (10:47). EKG was performed by a ke and shown to the ED physician. --10:58 Anatoliy Herrera 10:50 12/06/2016 ALBUTEROL NEB W ATROVENT Neb TX Nebulizer 1 unit dose given. Given by the respiratory therapist. Allergies verified and confirmed 5 rights. --11:11 Je Mcintosh R.N. 10:55 12/06/2016 Site #1 started via IV in the right antecubital space with an 18g angiocath, with aseptic technique and good blood return; two attempts. Blood drawn: rainbow set. Labeled in the presence of the patient and sent to the lab. Saline lock flushed with 10 mL saline. --11:06 Je Mcintosh R.N. 11:01 12/06/2016 IV Saline Lock Drip IV Response: no adverse reaction symptoms have improved. --11:11 Je Mcintosh R.N. 11:25 12/06/2016 Started bag #1 1000 mL IV Fluids IV NS (Saline); bolus of 1000 mL over 1 hour(s) via site #1 via IV pump. Allergies verified and confirmed 5 rights. IV patency established. IV site checked: no pain, redness, or swelling. IV flushed thoroughly pre- and post-medication administration. --11:28 Je Mcintosh R.N. 11:30 12/06/2016 Started 2 gm of Rocephin (CefTRIAXone Sodium) IVPB in bag #1 50 mL; at 100 mL/hr over 30 minute(s) via site #1 via IV pump. Allergies verified and confirmed 5 rights. IV patency established. IV site checked: no pain, redness, or swelling. IV flushed thoroughly pre- and post-medication administration. --11:33 Je Mcintosh R.N. 12:10 12/06/2016 Rocephin IVPB Discontinued: bag #1 completed. Total amount infused: 50 mL. IV patency established. IV site checked: no pain, redness, or swelling. IV flushed thoroughly. --12:22 Je Mcintosh R.N. 10:55 12/06/16. BP: 158/101. HR: 94. RR: 40. O2 saturation: 94% on room air. Pain level now: 04/07. --12:28 Je Mcintosh R.N. 11:25 12/06/16. BP: 165/80. HR: 93. RR: 40. O2 saturation: 94% on room air. Pain level now: 04/07. --12:28 Je Mcintosh R.N. 11:55 12/06/16. BP: 170/86. HR: 90. RR: 40. O2 saturation: 94% on room air. Pain level now: 04/07. --12:29 Je Mcintosh R.N. 12:30 12/06/2016 IV Fluids IV NS Discontinued: bag #1 completed. Total amount infused: 1000 mL. IV patency established. IV site checked: no pain, redness, or swelling. IV flushed thoroughly. --12:33 Je Mcintosh R.N. 12:57 12/06/16. O2 saturation: 97% on room air. ED physician notified. Temp: 99.7 F (oral). ED physician notified. --12:58 Anatoliy Herrera 13:12 12/06/2016 Hydrocodone-APAP Liquid (Hydrocodone-Acetaminophen) PO 7.5/325 mg Tablets 15 mL given. Allergies verified, confirmed 5 rights and sedative warning given to the patient. --13:14 Je Mcintosh R.N. 13:00. Patient transported to radiology by stretcher. (1300). --13:18 Je Mcintosh R.N. 13:11. Patient returned from radiology by stretcher. (1311). --13:19 Je Mcintosh R.N. 13:22 12/06/16. Temp: 101.7 F (oral). --13:22 Tylor Werner R.N. DISPOSITION / DISCHARGE 14:08 12/06/2016 Site #1 removed upon discharge. Catheter intact. Pressure dressing applied. --14:13 Joni Ramirez R.N. Departure time: 14:13 Dec 06 2016. Condition at departure: improved. No learning barriers present. Discharge instructions provided and reviewed with the patient. Reviewed warnings. Reviewed medication(s). Treatments reviewed. Reviewed referrals. Note given. Patient verbalized understanding. Written instructions provided in [place] Islander. The patient was discharged home and accompanied by spouse. She left the Emergency Department ambulatory and via private vehicle. Spouse driving. --14:13 Joni Ramirez R.N. 14:11 12/06/16. BP: 158/86. HR: 82. RR: 22. O2 saturation: 93%. Temp: 100.5 F. Pain level now 11/08. --14:13 Joni Ramirez R.N. Locked/Released at 12/06/2016 14:13 by Joni Ramirez R.N.
--- NOTE | 2016-12-06 13:54 | ED ORDER SUMMARY ---
..... Patient: CHRISTIN GUERRERO OrderSheet Merged With [facility] VisitID: [id number] [address] [place] [address] 46y, F Registration Date/Time: 12/06/2016 ORDER SHEET Weight: 90.7 kg (stated) Allergies: Codeine, Latex, Sulfa Antibiotics GENERAL ORDERS: EKG - ER Stat (10:40 12/06/2016 JSimbeck R.N. per protocol) (10:57 LTapper) Manager Review (Continuous) (Chest Pain) (11:09 12/06/2016 JSimbeck R.N. per protocol) (11:11 JSimbeck R.N.) Pulse oximeter (11:12/06/2016 JSimbeck R.N. per protocol) (11:11 JSimbeck R.N.) CBC w Diff Urgent (11:22 12/06/2016 Myla RICHTER) (Ack 11:24 Tia) (11:27 JSimbeck R.N.) Chest 2V Urgent (12:47 12/06/2016 Myla RICHTER) (Ack 12:51 RKaruga) (13:15 JSimbeck R.N.) Sinuses less than 3V Urgent (12:48 12/06/2016 Myla RICHTER) (Ack 12:51 RKaruga) (13:15 JSimbeck R.N.) - (re-check temperature.) (12:48 12/06/2016 Myla RICHTER) (12:56 LTapper) MEDICATION ORDERS: Albuterol Neb w Atrovent 1 unit dose (NOW) (11:10 12/06/2016 JSimbeck R.N. per protocol) (11:11 JSimbeck R.N.) Hydrocodone-APAP Liquid PO 15 mL (NOW) (12:48 12/06/2016 Myla RICHTER) (13:14 JSimbeck R.N.) IV FLUIDS: IV Saline Lock (11:06 12/06/2016 JSimbeck R.N. per protocol) (11:07 JSimbeck R.N.) IV NS : initial bolus 1000 mL (1000 mL/hr), then none - for X1 (NOW); Routine (11:20 12/06/2016 Myla RICHTER) (11:28 Trevor Leigh) Rocephin IV 2 gm/50mL (NOW) (11:22 12/06/2016 Myla RICHTER) (11:33 Trevor Leigh) ORDER SHEET NOTES: [Electronically signed by Joni Ramirez R.N. (14:13 12/06/2016)] [Electronically signed by Gurjit Carballo MD (15:52 12/08/2016)] [Electronically locked/signed by Joni Ramirez R.N. (14:13 12/06/2016)]
--- NOTE | 2016-12-08 15:52 | ED MAR SUMMARY ---
..... Medication Administration Record [facility] [address] [place] [address] Patient: CHRISTIN GUERRERO Visit ID: [id number] 46y, F Weight: 90.7 kg Height/Length: 66 in BMI: 32.3 ALLERGIES: Codeine, Latex, Sulfa Antibiotics Given 10:50 12/06/2016 Je Mcintosh R.N. Medication Administered: ALBUTEROL NEB W ATROVENT, Dose: 1 unit dose Nebulizer Neb TX. Medication Ordered: Albuterol Neb w Atrovent 1 unit dose (NOW). Start 11:25 12/06/2016 Je Mcintosh R.N., Stop 12:30 12/06/2016 Je Mcintosh R.N. Medication Administered: IV NS (SALINE), Dose: IV Fluids, Bolus: 1000 mL over 1 hour(s), Dispensed: 1000 mL bag, Site: #1 right AC. Medication Ordered: IV NS : initial bolus 1000 mL (1000 mL/hr), then none - for X1 (NOW); Routine. Start 11:30 12/06/2016 Je Mcintosh R.N., Stop 12:10 12/06/2016 Je Mcintosh R.N. Medication Administered: ROCEPHIN [IVPB] (CEFTRIAXONE SODIUM), Dose: 2 gm IVPB over 30 minute(s), Rate: 100 mL/hr, Dispensed: 50 mL bag, Site: #1 right AC. Medication Ordered: Rocephin IV 2 gm/50mL (NOW). Given 13:12 12/06/2016 Je Mcintosh R.N. Medication Administered: HYDROCODONE-APAP LIQUID [PO] (HYDROCODONE-ACETAMINOPHEN), Dose: 15 mL 7.5/325 mg Tablets PO. Medication Ordered: Hydrocodone-APAP Liquid PO 15 mL (NOW).
--- NOTE | 2016-12-08 15:52 | ED DISCHARGE INSTRUCTIONS ---
Patient: CHRISTIN GUERRERO General Instructions [facility] VisitID: [id number] [place] [address] 46y, F Registration Date/Time: 12/06/2016 Acute maxillary sinusitis Acute bacterial bronchitis. Acute bronchospasm Acute pharyngitis (bacterial). Intractable vomiting with nausea and volume depletion (Post-tussive). INSTRUCTIONS No strenuous activity. Rest. Drink plenty of fluids. (Decongestant of choice.). Warnings: Further evaluation is necessary. GENERAL WARNINGS: Return or contact your physician immediately if your condition worsens or changes unexpectedly, if not improving as expected, or if other problems arise. Your Current Medications: CONTINUE TAKING THE FOLLOWING MEDICATIONS: ALPRAZolam Oral. Atorvastatin Calcium Oral. ClonazePAM Oral. DULoxetine HCl Oral. Estridial*. Hydrocodone-Acetaminophen Oral. Methylphenidate HCl Oral. Morphine Sulfate ER Beads Oral : 60 mg. Omeprazole Oral. OxyCODONE HCl Oral. TiZANidine HCl Oral. Zolpidem Tartrate Oral. Prescription Medications: Zofran (orally disintegrating tablets) 4 mg: take 1 orally every 4 hours as needed for nausea and vomiting. Dispense ten (10). No refill. Substitution is permissible. Albuterol HFA oral inhaler: inhale 2 puffs via spacer every 4 hours as needed for difficulty breathing. Dispense one (1) unit. No refill. (or cough) Augmentin 875 mg: take 1 tablet orally every 12 hours for 14 days. No refill. Hydrocodone / APAP Liquid 7.5mg/325mg/15 mL: take fifteen (15) mL orally every 6 hours as needed. Dispense two hundred (200) mL. No refill. (for cough) Follow-up: Follow up with your doctor in one week. Call for an appointment. Understanding of the discharge instructions verbalized by patient. ADDITIONAL INFORMATION Sinusitis [Abx Tx] The sinuses are air-filled spaces within the bones of the face. They connect to the inside of the nose. Sinusitis is an inflammation of the tissue lining the sinus cavity. Sinus inflammation can occur during a cold or hay-fever (allergies to pollens and other particles in the air) and cause symptoms of sinus congestion and fullness. A sinus infection causes fever, headache and facial pain. There is usually green or yellow drainage from the nose or into the back of the throat (post-nasal drip). Antibiotics are prescribed to treat this condition. Home Care: Drink plenty of water, hot tea, and other liquids to stay well hydrated. This thins the mucus and promotes sinus drainage. Apply heat to the painful areas of the face. Use a towel soaked in hot water. Or, information services assistant the shower and direct the hot spray onto your face. This is a good way to inhale warm water vapor and get heat on your face at the same time. (Cover your mouth and nose with your hands so you can still breathe as you do this.) Use a vaporizer with products such as [employer] VapoRub (contains menthol) at night. Suck on peppermint, menthol or eucalyptus hard candies during the day. An expectorant containing guaifenesin (such as Robitussin), helps to thin the mucus and promote drainage from the sinuses. [id number] decongestants may be used unless a similar medicine was prescribed. Nasal sprays work the fastest. Use one that contains phenylephrine (Romario-synephrine, Sinex and others) or oxymetazoline (Afrin). First blow the nose gently to remove mucus, then apply the drops. Do not use these medicines more often than directed on the label or for more than three days or symptoms may worsen. You may also use tablets containing pseudoephedrine (Sudafed). Many sinus remedies combine ingredients, which may increase side effects. Read the labels or ask the pharmacist for help. NOTE: Persons with high blood pressure should not use decongestants. They can raise blood pressure. Antihistamines are useful if allergies are a cause of your sinusitis. The mildest one is chlorpheniramine (available without a prescription). The dose for adults is 8-12mg three times a day. [NOTE: Do not use chlorpheniramine if you have glaucoma or if you are a man with trouble urinating due to an enlarged prostate.] Claritin (loratidine) is an antihistamine that causes less drowsiness and is a good alternative for daytime use. Do not use nasal rinses or irrigation during an acute sinus infection, unless advised by your doctor. Rinsing may spread the infection to other sinuses. You may use acetaminophen (Tylenol) or ibuprofen (Motrin, Advil) to control pain, unless another pain medicine was prescribed. [ NOTE: If you have chronic liver or kidney disease or ever had a stomach ulcer, talk with your doctor before using these medicines.] (Aspirin should never be used in anyone under 18 years of age who is ill with a fever. It may cause severe liver damage.) Finish the full course, even if you are feeling better after a few days. Follow Up with your doctor or this facility in one week or as instructed by our staff if not improving. Get Prompt Medical Attention if any of the following occur: Facial pain or headache becomes more severe Stiff neck Unusual drowsiness or confusion, or not acting like your normal self Swelling of the forehead or eyelids Vision problems including blurred or double vision Fever of 100.4F (38C) or higher, or as directed by your healthcare provider Seizure Bronchitis (Adult: Abx Tx) BRONCHITIS is an infection of the air passages (bronchial tubes). It often occurs during the common cold. Symptoms include cough with mucus (phlegm) and low-grade fever. Bronchitis usually lasts 7-14 days. Mild cases can be treated with simple home remedies. More severe infection is treated with an antibiotic. Home Care: If symptoms are severe, rest at home for the first 2-3 days. When you resume activity, don't let yourself get too tired. Do not smoke. Avoid being exposed to the smoke of others. You may use acetaminophen (Tylenol) or ibuprofen (Motrin, Advil) to control fever or pain, unless another medicine was prescribed for this. [NOTE: If you have chronic liver or kidney disease or ever had a stomach ulcer or GI bleeding, talk with your doctor before using these medicines.] Your appetite may be poor, so a light diet is fine. Avoid dehydration by drinking 6-8 glasses of fluids per day (water, soft, drinks, juices, tea, soup, etc.). Extra fluids will help loosen secretions in the lungs. Idrs-hsy-klsqzjb cough medicines that containdextromethorphan(such as Robitussin DM) and decongestants (Actifed or Sudafed) may help relieve cough and congestion. [NOTE: Do not use decongestants if you have high blood pressure.] Finish all antibiotic medicine, even if you are feeling better after only a few days. Follow Up with your doctor or as directed if you dont start to feel better after three days. [NOTE: If you are age 65 or older, or if you have chronic asthma or COPD, we recommend a PNEUMOCOCCAL VACCINATION every five years and a yearly INFLUENZAVACCINATION (FLU-SHOT) every . Ask your doctor about this. If you had an X-ray, a radiologist will review it. You will be notified of any new findings that may affect your care.] Get Prompt Medical Attention if any of the following occur: Fever over 100.4F (38.0C) for more than three days Trouble breathing, wheezing or pain with breathing Coughing up blood or increased amounts of colored sputum Weakness, drowsiness, headache, facial pain, ear pain or a stiff neck Bronchospasm (Adult) Bronchospasm occurs when the airways (bronchial tubes) go into spasm and contract. This makes it hard to breathe and causes wheezing (a high-pitched whistling sound). Bronchospasm can also cause frequent coughing without the wheezing sound. Bronchospasm is due to irritation, inflammation or allergic reaction of the airways. People with asthma get bronchospasm. However, not everyone with bronchospasm has asthma. Being exposed to harmful fumes, a recent case of bronchitis, or a flare-up of chronic emphysema (COPD) may cause the airways to spasm. An episode of bronchospasm may last 7-14 days. Medicine may be prescribed to relax the airways and prevent wheezing. Antibiotics will be prescribed only if your doctor thinks there is a bacterial infection. Antibiotics do not help a viral infection. Home Care: Drink lots of water or other fluids (at least 10 glasses a day) during an attack. This will loosen lung secretions and make it easier to breathe. If you have heart or kidney disease, check with your doctor before you drink extra amounts of fluids. Take prescribed medicine exactly at the times advised. If you have a hand-held inhaler or aerosol breathing medicine, do not use it more than once every four hours, unless told to do so. If prescribed an antibiotic or prednisone, take all of the medicine even if you are feeling better after a few days. Do not smoke. Avoid being exposed to the smoke of others. If you were given an inhaler, use it exactly as directed. If you need to use it more often than prescribed, your condition may be getting worse. Contact your doctor or this facility. Follow Up With Your Doctor, Or As Directed. [ NOTE: If you are age 65 or older, or if you have chronic asthma or COPD, we recommend a PNEUMOCOCCAL VACCINATION every five years and a yearly INFLUENZA VACCINATION (FLU-SHOT) every . Ask your doctor about this.] Get Prompt Medical Attention If Any Of The Following Occur: Increased wheezing or shortness of breath Need to use your inhalers more often than usual without relief Fever of 100.4F (38C) or higher, or as directed by your healthcare provider Coughing up lots of dark-colored or bloody sputum (mucus) Chest pain with each breath You do not start to improve within 24 hours Vomiting [6Yr-Adult] Vomiting is a common symptom that may be due to different causes. These include gastroenteritis ("stomach flu"), food poisoning and gastritis. There are other more serious causes of vomiting which may be hard to diagnose early in the illness. Therefore, it is important to watch for the warning signs listed below. The main danger from repeated vomiting is dehydration. This is due to excess loss of water and minerals from the body. When this occurs, body fluids must be replaced. Home Care: If symptoms are severe, rest at home for the next 24 hours. You may use acetaminophen (Tylenol) or ibuprofen (Motrin, Advil) to control fever, unless another medicine was prescribed. [NOTE : If you have chronic liver or kidney disease or ever had a stomach ulcer or GI bleeding, talk with your doctor before using these medicines.] (Aspirin should never be used in anyone under 18 years of age who is ill with a fever. It may cause severe liver damage.) Avoid tobacco and alcohol use, which may worsen your symptoms. If medicines for vomiting were prescribed, take as directed. Once vomiting stops, then follow these guidelines: During The First 12-24 Hours follow the diet below: FRUIT JUICES: Apple, grape juice, clear fruit drinks, and electrolyte replacement drinks. BEVERAGES: Soft drinks without caffeine; mineral water (plain or flavored), decaffeinated tea and coffee. SOUPS: Clear broth, consomm and bouillon DESSERTS: Plain gelatin, popsicles and fruit juice bars. As you feel better, you may add 6-8 ounces of yogurt per day. During The Next 24 Hours you may add the following to the above: Hot cereal, plain toast, bread, rolls, crackers Plain noodles, rice, mashed potatoes, chicken noodle or rice soup Unsweetened canned fruit (avoid pineapple), bananas Limit caffeine and chocolate. No spices or seasonings except salt. During The Next 24 Hours Gradually resume a normal diet, as you feel better and your symptoms lessen. Follow Up with your doctor as advised if you are not improving over the next 2-3 days. Get Prompt Medical Attention if any of the following occur: Constant right-sided lower abdominal pain or increasing general abdominal pain Continued vomiting (unable to keep liquids down) for 24 hours Frequent diarrhea (more than 5 times a day); blood (red or black color) or mucus in diarrhea Reduced urine output or extreme thirst Weakness, dizziness or fainting Unusually drowsy or confused Fever of 100.4F (38C) oral or higher, not better with fever medication Yellow color of the eyes or skin Ondansetron Oral disintegrating tablet What is this medicine? ONDANSETRON (on MAVIS se joshua) is used to treat nausea and vomiting caused by chemotherapy. It is also used to prevent or treat nausea and vomiting after surgery. How should I use this medicine? These tablets are made to dissolve in the mouth. Do not try to push the tablet through the foil backing. With dry hands, peel away the foil backing and gently remove the tablet. Place the tablet in the mouth and allow it to dissolve, then swallow. While you may take these tablets with water, it is not necessary to do so. Talk to your special education professional regarding the use of this medicine in children. Special care may be needed. What side effects may I notice from receiving this medicine? Side effects that you should report to your doctor or health skin care technician as soon as possible: allergic reactions like skin rash, itching or hives, swelling of the face, lips, or tongue breathing problems dizziness fast or irregular heartbeat feeling faint or lightheaded, falls fever and chills swelling of the hands and feet tightness in the chest Side effects that usually do not require medical attention (report to your doctor or health skin care technician if they continue or are bothersome): constipation or diarrhea headache What may interact with this medicine? Do not take this medicine with any of the following medications: -apomorphine -cisapride -dofetilide -dronedarone -pimozide -thioridazine -ziprasidone This medicine may also interact with the following medications: -carbamazepine -phenytoin -rifampicin -tramadol -other medicines that prolong the QT interval (cause an abnormal heart rhythm) What if I miss a dose? If you miss a dose, take it as soon as you can. If it is almost time for your next dose, take only that dose. Do not take double or extra doses. Where should I keep my medicine? Keep out of the reach of children. Store between 2 and 30 degrees C (36 and 86 degrees F). Throw away any unused medicine after the expiration date. What should I tell my health care provider before I take this medicine? They need to know if you have any of these conditions: heart disease history of irregular heartbeat liver disease low levels of magnesium or potassium in the blood an unusual or allergic reaction to ondansetron, granisetron, other medicines, foods, dyes, or preservatives or trying to get breast-feeding What should I watch for while using this medicine? Check with your doctor or health skin care technician as soon as you can if you have any sign of an allergic reaction. Albuterol Sulfate Pressurized inhalation, suspension What is this medicine? ALBUTEROL (al BYOO ter ole) is a bronchodilator. It helps open up the airways in your lungs to make it easier to breathe. This medicine is used to treat and to prevent bronchospasm. How should I use this medicine? This medicine is for inhalation through the mouth. Follow the directions on your prescription label. Take your medicine at regular intervals. Do not use more often than directed. Make sure that you are using your inhaler correctly. Ask you doctor or health care provider if you have any questions. Talk to your special education professional regarding the use of this medicine in children. Special care may be needed. What side effects may I notice from receiving this medicine? Side effects that you should report to your doctor or health skin care technician as soon as possible: allergic reactions like skin rash, itching or hives, swelling of the face, lips, or tongue breathing problems chest pain feeling faint or lightheaded, falls high blood pressure irregular heartbeat fever muscle cramps or weakness pain, tingling, numbness in the hands or feet vomiting Side effects that usually do not require medical attention (report to your doctor or health skin care technician if they continue or are bothersome): cough difficulty sleeping headache nervousness or trembling stomach upset stuffy or runny nose throat irritation unusual taste What may interact with this medicine? anti-infectives like chloroquine and pentamidine caffeine cisapride diuretics medicines for colds medicines for depression or for emotional or psychotic conditions medicines for weight loss including some herbal products methadone some antibiotics like clarithromycin, erythromycin, levofloxacin, and linezolid some heart medicines steroid hormones like dexamethasone, cortisone, hydrocortisone theophylline thyroid hormones What if I miss a dose? If you miss a dose, use it as soon as you can. If it is almost time for your next dose, use only that dose. Do not use double or extra doses. Where should I keep my medicine? Keep out of the reach of children. Store at room temperature between 15 and 30 degrees C (59 and 86 degrees F). The contents are under pressure and may burst when exposed to heat or flame. Do not freeze. This medicine does not work as well if it is too cold. Throw away any unused medicine after the expiration date. Inhalers need to be thrown away after the labeled number of puffs have been used or by the expiration date; whichever comes first. Ventolin HFA should be thrown away 12 months after removing from foil pouch. Check the instructions that come with your medicine. What should I tell my health care provider before I take this medicine? They need to know if you have any of the following conditions: diabetes heart disease or irregular heartbeat high blood pressure pheochromocytoma seizures thyroid disease an unusual or allergic reaction to albuterol, levalbuterol, sulfites, other medicines, foods, dyes, or preservatives or trying to get breast-feeding What should I watch for while using this medicine? Tell your doctor or health skin care technician if your symptoms do not improve. Do not use extra albuterol. If your asthma or bronchitis gets worse while you are using this medicine, call your doctor right away. If your mouth gets dry try chewing sugarless gum or sucking hard candy. Drink water as directed. Amoxicillin Trihydrate, Clavulanate Potassium Oral tablet What is this medicine? AMOXICILLIN; CLAVULANIC ACID (a mox i DAKOTA in; KLAV carito bradley ic id) is a penicillin antibiotic. It is used to treat certain kinds of bacterial infections. It will not work for colds, flu, or other viral infections. How should I use this medicine? Take this medicine by mouth with a full glass of water. Follow the directions on the prescription label. Take at the start of a meal. Do not crush or chew. If the tablet has a score line, you may cut it in half at the score line for easier swallowing. Take your medicine at regular intervals. Do not take your medicine more often than directed. Take all of your medicine as directed even if you think you are better. Do not skip doses or stop your medicine early. Talk to your special education professional regarding the use of this medicine in children. Special care may be needed. What side effects may I notice from receiving this medicine? Side effects that you should report to your doctor or health skin care technician as soon as possible: allergic reactions like skin rash, itching or hives, swelling of the face, lips, or tongue breathing problems dark urine fever or chills, sore throat redness, blistering, peeling or loosening of the skin, including inside the mouth seizures trouble passing urine or change in the amount of urine unusual bleeding, bruising unusually weak or tired white patches or sores in the mouth or throat Side effects that usually do not require medical attention (report to your doctor or health skin care technician if they continue or are bothersome): diarrhea dizziness headache nausea, vomiting stomach upset vaginal or anal irritation What may interact with this medicine? allopurinol anticoagulants control pills methotrexate probenecid What if I miss a dose? If you miss a dose, take it as soon as you can. If it is almost time for your next dose, take only that dose. Do not take double or extra doses. Where should I keep my medicine? Keep out of the reach of children. Store at room temperature below 25 degrees C (77 degrees F). Keep container tightly closed. Throw away any unused medicine after the expiration date. What should I tell my health care provider before I take this medicine? They need to know if you have any of these conditions: bowel disease, like colitis kidney disease liver disease mononucleosis an unusual or allergic reaction to amoxicillin, penicillin, cephalosporin, other antibiotics, clavulanic acid, other medicines, foods, dyes, or preservatives or trying to get breast-feeding What should I watch for while using this medicine? Tell your doctor or health skin care technician if your symptoms do not improve. Do not treat diarrhea with over the counter products. Contact your doctor if you have diarrhea that lasts more than 2 days or if it is severe and watery. If you have diabetes, you may get a false-positive result for sugar in your urine. Check with your doctor or health skin care technician. control pills may not work properly while you are taking this medicine. Talk to your doctor about using an extra method of control. Hydrocodone Bitartrate, Acetaminophen Oral solution What is this medicine? ACETAMINOPHEN; HYDROCODONE (a set a RAJESH lori fen; domi droe KOE done) is a pain reliever. It is used to treat mild to moderate pain. How should I use this medicine? Take this medicine by mouth. Use a specially marked spoon or dropper to measure your dose. Ask your pharmacist if you do not have a dropper or measuring spoon. Do not use a household spoon. Follow the directions on the prescription label. If the medicine upsets your stomach, take it with food or milk. Do not take more medicine than you are told to take. Talk to your special education professional regarding the use of this medicine in children. This medicine is not approved for use in children. What side effects may I notice from receiving this medicine? Side effects that you should report to your doctor or health skin care technician as soon as possible: allergic reactions like skin rash, itching or hives, swelling of the face, lips, or tongue breathing problems confusion feeling faint or lightheaded, falls stomach pain yellowing of the eyes or skin Side effects that usually do not require medical attention (report to your doctor or health skin care technician if they continue or are bothersome): nausea, vomiting stomach upset What may interact with this medicine? alcohol antihistamines isoniazid medicines for depression, anxiety, or psychotic disturbances medicines for sleep muscle relaxants naltrexone narcotic medicines (opiates) for pain phenobarbital ritonavir tramadol What if I miss a dose? If you miss a dose, take it as soon as you can. If it is almost time for your next dose, take only that dose. Do not take double or extra doses. Where should I keep my medicine? Keep out of the reach of children. This medicine can be abused. Keep your medicine in a safe place to protect it from theft. Do not share this medicine with anyone. Selling or giving away this medicine is dangerous and against the law. Store at room temperature between 20 and 25 degrees C (68 and 77 degrees F). Protect from light. Keep container tightly closed. Throw away any unused medicine after the expiration date. Discard unused medicine and used packaging carefully. Pets and children can be harmed if they find used or lost packages. What should I tell my health care provider before I take this medicine? They need to know if you have any of these conditions: brain tumor Crohn's disease, inflammatory bowel disease, or ulcerative colitis drink more than 3 alcohol-containing drinks per day drug abuse or addiction head injury heart or circulation problems kidney disease or problems going to the bathroom liver disease lung disease, asthma, or breathing problems an unusual or allergic reaction to acetaminophen, hydrocodone, other opioid analgesics, other medicines, foods, dyes, or preservatives or trying to get breast-feeding What should I watch for while using this medicine? Tell your doctor or health skin care technician if your pain does not go away, if it gets worse, or if you have new or a different type of pain. You may develop tolerance to the medicine. Tolerance means that you will need a higher dose of the medicine for pain relief. Tolerance is normal and is expected if you take this medicine for a long time. Do not suddenly stop taking your medicine because you may develop a severe reaction. Your body becomes used to the medicine. This does NOT mean you are addicted. Addiction is a behavior related to getting and using a drug for a non-medical reason. If you have pain, you have a medical reason to take pain medicine. Your doctor will tell you how much medicine to take. If your doctor wants you to stop the medicine, the dose will be slowly lowered over time to avoid any side effects. You may get drowsy or dizzy when you first start taking the medicine or change doses. Do not drive, use machinery, or do anything that may be dangerous until you know how the medicine affects you. Stand or sit up slowly. There are different types of narcotic medicines (opiates) for pain. If you take more than one type at the same time, you may have more side effects. Give your health care provider a list of all medicines you use. Your doctor will tell you how much medicine to take. Do not take more medicine than directed. Call emergency for help if you have problems breathing. The medicine will cause constipation. Try to have a bowel movement at least every 2 to 3 days. If you do not have a bowel movement for 3 days, call your doctor or health skin care technician. Too much acetaminophen can be very dangerous. Do not take Tylenol (acetaminophen) or medicines that contain acetaminophen with this medicine. Many non-prescription medicines contain acetaminophen. Always read the labels carefully. You have been given the following additional information: Sinusitis, Abx Tx Bronchitis, Antiobiotic Treatment (Adult) Bronchospasm (Adult) Vomiting (6Y-Adult) Ondansetron Oral disintegrating tablet Albuterol Sulfate Pressurized inhalation, suspension Amoxicillin Trihydrate, Clavulanate Potassium Oral tablet Hydrocodone Bitartrate, Acetaminophen Oral solution No strenuous activity. Rest. (Electronically signed by Gurjit Carballo MD 12/08/2016 15:52)
--- NOTE | 2016-12-08 15:52 | ED MAR SUMMARY ---
..... Medication Administration Record [facility] [address] [place] [address] Patient: CHRISTIN GUERRERO Visit ID: [id number] 46y, F Weight: 90.7 kg Height/Length: 66 in BMI: 32.3 ALLERGIES: Codeine, Latex, Sulfa Antibiotics Given 10:50 12/06/2016 Je Mcintosh R.N. Medication Administered: ALBUTEROL NEB W ATROVENT, Dose: 1 unit dose Nebulizer Neb TX. Medication Ordered: Albuterol Neb w Atrovent 1 unit dose (NOW). Start 11:25 12/06/2016 Je Mcintosh R.N., Stop 12:30 12/06/2016 Je Mcintosh R.N. Medication Administered: IV NS (SALINE), Dose: IV Fluids, Bolus: 1000 mL over 1 hour(s), Dispensed: 1000 mL bag, Site: #1 right AC. Medication Ordered: IV NS : initial bolus 1000 mL (1000 mL/hr), then none - for X1 (NOW); Routine. Start 11:30 12/06/2016 Je Mcintosh R.N., Stop 12:10 12/06/2016 Je Mcintosh R.N. Medication Administered: ROCEPHIN [IVPB] (CEFTRIAXONE SODIUM), Dose: 2 gm IVPB over 30 minute(s), Rate: 100 mL/hr, Dispensed: 50 mL bag, Site: #1 right AC. Medication Ordered: Rocephin IV 2 gm/50mL (NOW). Given 13:12 12/06/2016 Je Mcintosh R.N. Medication Administered: HYDROCODONE-APAP LIQUID [PO] (HYDROCODONE-ACETAMINOPHEN), Dose: 15 mL 7.5/325 mg Tablets PO. Medication Ordered: Hydrocodone-APAP Liquid PO 15 mL (NOW).
--- NOTE | 2016-12-08 15:53 | ED MED RECONCILIATION SUMMARY ---
Patient: CHRISTIN GUERRERO Medication Reconciliation Report [facility] VisitID: [id number] [address] [place] [address] 46y, F Registration Date/Time: 12/06/2016 Weight: 90.7 kg Height/Length: 66 in. BMI: 32.3 ALLERGIES: Codeine, Latex, Sulfa Antibiotics The patient's Home Medications are listed below: CONTINUE TAKING THE FOLLOWING MEDICATIONS: ALPRAZolam Oral Atorvastatin Calcium Oral ClonazePAM Oral DULoxetine HCl Oral Estridial Hydrocodone-Acetaminophen Oral Methylphenidate HCl Oral Morphine Sulfate ER Beads Oral 60 mg Omeprazole Oral OxyCODONE HCl Oral TiZANidine HCl Oral Zolpidem Tartrate Oral The source(s) of the original Home Medication information: Not obtained. The following Medications were given to the patient in the Emergency Department: ALBUTEROL NEB W ATROVENT Neb TX 1 unit dose, administered: 12/06/2016 10:50:00 AM IV NS IV Fluids bolus 1000 mL over 1 hour(s), administered: 12/06/2016 11:25:00 AM Rocephin [IVPB] IVPB bolus 0, then 2 gm 100 mL/hr, administered: 12/06/2016 11:30:00 AM Hydrocodone-APAP Liquid [PO] PO 15 mL, administered: 12/06/2016 1:12:00 PM The following Medications were prescribed to the patient: Zofran (orally disintegrating tablets) 4 mg: take 1 orally every 4 hours as needed for nausea and vomiting. Dispense ten (10). No refill. Substitution is permissible. -- Gurjit Carballo MD Albuterol HFA oral inhaler: inhale 2 puffs via spacer every 4 hours as needed for difficulty breathing. Dispense one (1) unit. No refill.(or cough) -- Gurjit Carballo MD Augmentin 875 mg: take 1 tablet orally every 12 hours for 14 days. No refill. -- Gurjit Carballo MD Hydrocodone / APAP Liquid 7.5mg/325mg/15 mL: take fifteen (15) mL orally every 6 hours as needed. Dispense two hundred (200) mL. No refill.(for cough) -- Gurjit Carballo MD
--- NOTE | 2016-12-08 15:53 | ED MED RECONCILIATION SUMMARY ---
Patient: CHRISTIN GUERRERO Medication Reconciliation Report [facility] VisitID: [id number] [address] [place] [address] 46y, F Registration Date/Time: 12/06/2016 Weight: 90.7 kg Height/Length: 66 in. BMI: 32.3 ALLERGIES: Codeine, Latex, Sulfa Antibiotics The patient's Home Medications are listed below: CONTINUE TAKING THE FOLLOWING MEDICATIONS: ALPRAZolam Oral Atorvastatin Calcium Oral ClonazePAM Oral DULoxetine HCl Oral Estridial Hydrocodone-Acetaminophen Oral Methylphenidate HCl Oral Morphine Sulfate ER Beads Oral 60 mg Omeprazole Oral OxyCODONE HCl Oral TiZANidine HCl Oral Zolpidem Tartrate Oral The source(s) of the original Home Medication information: Not obtained. The following Medications were given to the patient in the Emergency Department: ALBUTEROL NEB W ATROVENT Neb [place] 1 unit dose, administered: 12/06/2016 10:50:00 AM IV NS IV Fluids bolus 1000 mL over 1 hour(s), administered: 12/06/2016 11:25:00 AM Rocephin [IVPB] IVPB bolus 0, then 2 gm 100 mL/hr, administered: 12/06/2016 11:30:00 AM Hydrocodone-APAP Liquid [PO] PO 15 mL, administered: 12/06/2016 1:12:00 PM The following Medications were prescribed to the patient: Zofran (orally disintegrating tablets) 4 mg: take 1 orally every 4 hours as needed for nausea and vomiting. Dispense ten (10). No refill. Substitution is permissible. -- Gurjit Carballo MD Albuterol HFA oral inhaler: inhale 2 puffs via spacer every 4 hours as needed for difficulty breathing. Dispense one (1) unit. No refill.(or cough) -- Gurjit Carballo MD Augmentin 875 mg: take 1 tablet orally every 12 hours for 14 days. No refill. -- Gurjit Carballo MD Hydrocodone / APAP Liquid 7.5mg/325mg/15 mL: take fifteen (15) mL orally every 6 hours as needed. Dispense two hundred (200) mL. No refill.(for cough) -- Gurjit Carballo MD
== END 2016-12-06 10:27 | disposition home or self-care (01) ==
LOC: ED SRH 10:25
DX: J01.00 Acute maxillary sinusitis, unspecified (principal); J20.9 Acute bronchitis, unspecified; J02.9 Acute pharyngitis, unspecified; R11.2 Nausea with vomiting, unspecified; E86.9 Volume depletion, unspecified; Z79.891 Long term (current) use of opiate analgesic; Z79.899 Other long term (current) drug therapy; Z88.2 Allergy status to sulfonamides; Z88.5 Allergy status to narcotic agent; Z91.040 Latex allergy status
CPT/HCPCS: 95059